=== PATIENT | male | born 1985 | race Caucasian/White ===

== ENCOUNTER 2023-07-29 09:48 | Outpatient (CLI) | payer OTHER, SELFPAY ==
--- NOTE | 2023-07-29 10:13 | XR_ITS ---
WS: [email or web address] Cervical spine, 3 views, 07/29/2023 Clinical Data: CERVICAL NECK STRAIN Comparison: None. Findings: No compression fractures are seen. There is degenerative disc narrowing at multiple levels from C3 3 4 through C C6-C7. Minimal anterior osteophytes are present at these levels. There is no p revertebral soft tissue swelling. The odontoid is unremarkable. The soft tissues of the neck and the lung apices are normal. Impression: 1. Minimal disc compression cervical spine. From C3-C4 through C6-C7. 2. Minimal anterior osteophytes C3-C7.
--- NOTE | 2023-07-29 10:13 | XR_ITS ---
WS: [email or web address] AP pelvis, 2 views of each hip, 07/29/2023 Clinical Data: BILATERAL HIP STRAIN Comparison: None. Findings: No new fractures or dislocations are seen. The hips show no erosion, sclerosis, narrowing or fragment ation of the femoral heads. The SI joints and pubic symphysis are unremarkable. There is an intramedu llary gregg in the left femur which is reducing a healed mid shaft fracture. Impression: 1. Negative pelvis and both hips. 2. Intramedullary gregg of the left femur reducing old left mid femoral fracture.
--- NOTE | 2023-07-29 10:13 | XR_ITS ---
WS: [email or web address] Lumbar spine, AP, lateral views in flexion, extension and neutral position, 07/29/2023 , Clinical Data: LUMBOSACRAL STRAIN Comparison: None. Findings: No compression fractures or subluxation is seen. No disc space narrowing is seen. The transverse proc esses and SI joints are normal. Impression: Negative lumbar spine.
--- NOTE | 2023-07-29 10:13 | XR_ITS ---
WS: [email or web address] Sinus series, 4 views, 07/29/2023 Clinical Data: SINUSITIS Comparison: None. Findings: There is no mucoperiosteal thickening of the paranasal sinuses. There are no air-fluid levels. There is no bone destruction or erosion. The orbits are normal. The sella turcica is unremarkable. Impression: Negative sinus series.
--- NOTE | 2023-07-29 10:13 | XR_ITS ---
WS: [email or web address] Left shoulder, 2 views, 07/29/2023 Clinical Data: SHOULDER STRAIN Comparison: None. Findings: No fractures or dislocations are seen. The AC joint is normal. The adjacent left clavicle, left scapu la and ribs are normal. The soft tissues are unremarkable. Impression: Negative left shoulder.
--- NOTE | 2023-07-29 10:13 | XR_ITS ---
WS: [email or web address] AP standing views of both knees, 07/29/2023 Clinical Data: BILATERAL KNEE STRAIN Comparison: None. Findings: The AP view of the right knee shows no abnormalities. There is no joint space narrowing. No bone dest ruction or erosion is seen. The AP view of the left knee shows no abnormalities. The intramedullary gregg reducing a mid shaft frac ture of the left femur is seen distally and is fixed with a transverse screw. Impression: Negative bilateral AP views of the knees.
== END 2023-07-29 09:49 | disposition home or self-care (01) ==
PROVIDERS: Visit Provider Nurse Practitioner Family
DX: J01.90 Acute sinusitis, unspecified (principal); S46.812A Strain of other muscles, fascia and tendons at shoulder and upper arm level, left arm, initial encounter; S76.012A Strain of muscle, fascia and tendon of left hip, initial encounter; S76.011A Strain of muscle, fascia and tendon of right hip, initial encounter; S16.1XXA Strain of muscle, fascia and tendon at neck level, initial encounter; S33.5XXA Sprain of ligaments of lumbar spine, initial encounter; S86.912A Strain of unspecified muscle(s) and tendon(s) at lower leg level, left leg, initial encounter; S86.911A Strain of unspecified muscle(s) and tendon(s) at lower leg level, right leg, initial encounter; X58.XXXA Exposure to other specified factors, initial encounter; Z87.81 Personal history of (healed) traumatic fracture
CPT/HCPCS: 70220; 72040; 72110; 73030; 73522; 73565